=== PATIENT | female | born 1970 | race American Indian/Alaskan Native ===

== ENCOUNTER 2016-08-30 21:49 | Inpatient (IN) | payer SELFPAY ==
[2016-08-30] MEDS ORDERED: CATAPRES ONE (22:41)
[2016-08-30] MEDS ORDERED: CATAPRES PO ONE (22:47)
[2016-08-30 23:12] LABS: Basophils % (Auto) 1.3 % (0.0-1.8); Eosinophils % (Auto) 0.5 % (0.0-4.3); Mean Corpuscular HGB Conc 31 % (30-34); Mean Corpuscular Volume 75 fl (79-97); Platelet Count 245 K/mm3 (140-440); Red Blood Count 5.17 M/mm3 (3.65-5.03); Red Cell Distribution Width 15.3 % (13.2-15.2); White Blood Count 4.8 K/mm3 (4.5-11.0)
[2016-08-30 23:15] LABS: Hematocrit 38.6 % (30.3-42.9); Hemoglobin 11.8 gm/dl (10.1-14.3)
[2016-08-30 23:16] LABS: Mean Corpuscular Hemoglobin 23 pg (28-32)
[2016-08-30 23:22] LABS: Anion Gap 21 mmol/L; BUN/Creatinine Ratio 8.18; Blood Urea Nitrogen 9 mg/dL (7-17); Calcium 8.5 mg/dL (8.4-10.2); Carbon Dioxide 25 mmol/L (22-30); Chloride 95.3 mmol/L (98-107); Glucose 92 mg/dL (65-100); Sodium 138 mmol/L (137-145)
[2016-08-30 23:25] LABS: INR 0.91 (0.87-1.13)
[2016-08-30 23:26] LABS: Partial Thromboplastin Time 29.8 Sec. (24.2-36.6)
[2016-08-30 23:49] LABS: Potassium 2.9 mmol/L (3.6-5.0)
[2016-08-31] MEDS ORDERED: K-DUR PO ONE (00:45)
[2016-08-31] MEDS ORDERED: BENADRYL IV ONE (00:45)
[2016-08-31] MEDS ORDERED: TORADOL IV ONE (00:45)
[2016-08-31] MEDS ORDERED: REGLAN IV ONE (00:45)
--- NOTE | 2016-08-31 00:58 | Emergency Department Report ---
ED General Adult HPI - General Chief complaint: Chest Pain Stated complaint: CHEST PAIN/HIGH BP Time Seen by Provider: 08/31/16 00:26 Source: patient, EMS Mode of arrival: Ambulatory Limitations: No Limitations, Other - History of Present Illness Initial comments: 46-year-old female with a past medical history asthma, kidney stones, hypertension, and migraines presents to the hospital with multiple complaints. Patient is in a position covering eyes with her hands during history of present illness and getting only one-word answers so details of history of present illness is limited complaint #1: Headache Patient complains of frontal headache for several hours that is constant. Positive light sensitivity. Different from previous headaches because it came out and nowhere and was associated with elevated blood pressure. Patient states she has been compliant with his blood pressure medication.+ nausea and vomiting Complaint #2: Left-sided chest pain radiating to the back. Patient complains of constant I/10 chest pressure. Also complains of cough productive of yellow- green sputum since August 26. Patient reports that she had a negative stress test at [facility] several months ago. Patient apparently was prescribed nitroglycerin and has not been using the medication. Complaint #3: Numbness. Patient complains of numbness of paresthesias to bilateral hands and feet. No complaints of weakness. Severity scale (0 -10): 0 - Related Data Previous Rx's Medication Instructions Recorded Last Taken Type HYDROcodone/APAP 5-325 [[place] 1 each PO Q6HR PRN #20 tablet 08/31/16 Unknown Rx 5/325] Ibuprofen [Motrin] 800 mg PO Q8HR PRN #30 tablet 08/31/16 Unknown Rx Ondansetron [Zofran Odt] 4 mg PO Q8HR PRN #20 tab.rapdis 08/31/16 Unknown Rx Potassium Chloride 20 meq PO QDAY #4 packet 08/31/16 Unknown Rx Allergies Allergy/AdvReac Type Severity Reaction Status Date / Time No Known Allergies Allergy Unverified 12/08/15 18:17 ED Review of Systems ROS: Stated complaint: CHEST PAIN/HIGH BP Other details as noted in HPI Comment: All other systems reviewed and negative Other: Constitutional: No fevers chills Eyes: No eye pain visual changes ENT: No ear pain or throat pain Neck: Denies pain Respiratory: + cough Cardiovascular: + cp GI: Denies abdominal pain : Denies dysuria Musculoskeletal: Denies back pain, joint swelling Skin: Denies rash, lesions, erythema Neurologic: Denies headache, numbness, weakness Psychiatric: Denies suicidal ideation, hallucinations ED Past Medical Hx - Past Medical History Previous Medical History?: Yes Hx Hypertension: Yes Hx Headaches / Migraines: Yes (migraines) Hx Kidney Stones: Yes Hx Asthma: Yes - Surgical History Past Surgical History?: Yes Additional Surgical History: hysterectomy,breast cyst removed - Social History Smoking Status: Never Smoker Substance Use Type: Alcohol - Medications Home Medications: Home Medications Medication Instructions Recorded Confirmed Last Taken Type HYDROcodone/APAP 5-325 [[place] 1 each PO Q6HR PRN #20 tablet 08/31/16 Unknown Rx 5/325] Ibuprofen [Motrin] 800 mg PO Q8HR PRN #30 tablet 08/31/16 Unknown Rx Ondansetron [Zofran Odt] 4 mg PO Q8HR PRN #20 tab.rapdis 08/31/16 Unknown Rx Potassium Chloride 20 meq PO QDAY #4 packet 08/31/16 Unknown Rx ED Physical Exam - General Limitations: No Limitations - Other Other exam information: General: Limited by patient's discomfort Head exam: Atraumatic, normocephalic Eyes exam: Patient holding her eyes closed due to photosensitivity Neck exam: Normal inspection, full range of motion, no meningismus nontender Respiratory exam: Clear to auscultation bilateral, no wheezes, rales, crackles Cardiovascular: Normal rate and rhythm, normal heart sounds Abdomen: Soft, nondistended, and nontender, with normal bowel sounds, no rebound, or guarding Extremity: Full range of motion normal inspection no deformity, no calf tenderness or edema Back: Normal Inspection, full range of motion, no tenderness Neurologic: Alert, oriented x3, cranial nerves intact, no motor or sensory deficit Psychiatric: normal affect, normal mood Skin: Warm, dry, intact ED Course Vital Signs 08/30/16 08/30/16 08/30/16 21:50 22:47 23:58 Temperature 97.9 F Pulse Rate 81 81 85 Respiratory 18 19 Rate Blood Pressure 184/125 Blood Pressure 184/125 [Right] O2 Sat by Pulse 100 Oximetry 08/31/16 08/31/16 08/31/16 00:00 00:10 00:31 Temperature Pulse Rate 82 97 H 88 Respiratory 24 18 13 Rate Blood Pressure 172/111 140/84 Blood Pressure 170/107 [Right] O2 Sat by Pulse 100 99 Oximetry 08/31/16 08/31/16 08/31/16 01:49 02:00 02:31 Temperature Pulse Rate 90 94 H Respiratory 37 H 24 Rate Blood Pressure 143/94 145/80 145/80 Blood Pressure [Right] O2 Sat by Pulse 99 96 97 Oximetry 08/31/16 03:00 Temperature Pulse Rate 93 H Respiratory 23 Rate Blood Pressure 144/101 Blood Pressure [Right] O2 Sat by Pulse 95 Oximetry ED Medical Decision Making - Lab Data Result diagrams: 08/30/16 22:48 08/30/16 22:48 Lab Results 08/30/16 08/30/16 08/30/16 Range/Units 22:48 22:48 22:48 WBC 4.8 (4.5-11.0) K/mm3 RBC 5.17 H (3.65-5.03) M/mm3 Hgb 11.8 (10.1-14.3) gm/dl Hct 38.6 (30.3-42.9) % MCV 75 L (79-97) fl MCH 23 L (28-32) pg MCHC 31 (30-34) % RDW 15.3 H (13.2-15.2) % Plt Count 245 (140-440) K/mm3 Lymph % (Auto) 24.9 (13.4-35.0) % [place] % (Auto) 14.2 H (0.0-7.3) % Eos % (Auto) 0.5 (0.0-4.3) % Baso % (Auto) 1.3 (0.0-1.8) % Lymph # 1.2 (1.2-5.4) K/mm3 [place] # 0.7 (0.0-0.8) K/mm3 Eos # 0.0 (0.0-0.4) K/mm3 Baso # 0.1 (0.0-0.1) K/mm3 Seg Neutrophils % 59.1 (40.0-70.0) % Seg Neutrophils # 2.9 (1.8-7.7) K/mm3 PT 12.2 (12.2-14.9) Sec. INR 0.91 (0.87-1.13) APTT 29.8 (24.2-36.6) Sec. Sodium 138 (137-145) mmol/L Potassium 2.9 L* (3.6-5.0) mmol/L Chloride 95.3 L (98-107) mmol/L Carbon Dioxide 25 (22-30) mmol/L Anion Gap 21 mmol/L BUN 9 (7-17) mg/dL Creatinine 1.1 (0.7-1.2) mg/dL Estimated GFR > 60 ml/min BUN/Creatinine Ratio 8.18 % Glucose 92 (65-100) mg/dL Calcium 8.5 (8.4-10.2) mg/dL Magnesium (1.7-2.3) mg/dL Troponin T < 0.010 (0.00-0.029) ng/mL 08/30/16 08/31/16 Range/Units 22:48 02:03 WBC (4.5-11.0) K/mm3 RBC (3.65-5.03) M/mm3 Hgb (10.1-14.3) gm/dl Hct (30.3-42.9) % MCV (79-97) fl MCH (28-32) pg MCHC (30-34) % RDW (13.2-15.2) % Plt Count (140-440) K/mm3 Lymph % (Auto) (13.4-35.0) % [place] % (Auto) (0.0-7.3) % Eos % (Auto) (0.0-4.3) % Baso % (Auto) (0.0-1.8) % Lymph # (1.2-5.4) K/mm3 [place] # (0.0-0.8) K/mm3 Eos # (0.0-0.4) K/mm3 Baso # (0.0-0.1) K/mm3 Seg Neutrophils % (40.0-70.0) % Seg Neutrophils # (1.8-7.7) K/mm3 PT (12.2-14.9) Sec. INR (0.87-1.13) APTT (24.2-36.6) Sec. Sodium (137-145) mmol/L Potassium (3.6-5.0) mmol/L Chloride (98-107) mmol/L Carbon Dioxide (22-30) mmol/L Anion Gap mmol/L BUN (7-17) mg/dL Creatinine (0.7-1.2) mg/dL Estimated GFR ml/min BUN/Creatinine Ratio % Glucose (65-100) mg/dL Calcium (8.4-10.2) mg/dL Magnesium 1.7 (1.7-2.3) mg/dL Troponin T < 0.010 (0.00-0.029) ng/mL - EKG Data -: EKG Interpreted by Me (nsr rate 81, nonspecific t wave abnl, prologed qt) - EKG Data When compared to previous EKG there are: no significant change (compared to 12/07) - Radiology Data Radiology results: report reviewed (ct head: normal), image reviewed (xr chest: 2 view, curved spine, naf, narrow mediastium) - Medical Decision Making Patient's pain improved after Benadryl, Reglan, Toradol, Dilaudid 0.5 mg, and Zofran. Chest pain is atypical, somewhat reproducible and patient has an unchanged EKG, 2 sets of negative cardiac enzymes, and a self-reported negative stress test at [facility] within the last several months. Chest x-ray unremarkable given patient's respiratory symptoms there are no signs of infiltrate. Patient also has a narrow mediastinum Patient has a history of migraines. Headache improved with treatment. CT head does not show any acute abnormality. Patient's uncontrolled blood pressure improved with clonidine and has remained improved in the ED. She does not have her current blood pressure medication list and states she has been compliant however, patient has been having vomiting with associated hypokalemia. Patient be discharged with pain medication, nausea medication, and potassium supplementation - Differential Diagnosis pneumonia, bronchitis, migraine, hypertensive headache, ICH Critical Care Time: No Critical care attestation.: If time is entered above; I have spent that time in minutes in the direct care of this critically ill patient, excluding procedure time. ED Disposition Clinical Impression: Headache, Uncontrolled hypertension, Atypical chest pain, Hypokalemia Disposition: DISCHARGED TO HOME OR SELFCARE Is pt being admited?: No Does the pt Need Aspirin: No Condition: Stable Instructions: Hypertension (ED), Chest Pain (ED), Acute Headache (ED), Hypokalemia (ED) Additional Instructions: Take the medication as prescribed. Return if symptoms worsen. Follow-up with your doctor or the doctor/clinic provided for further workup and evaluation Prescriptions: HYDROcodone/APAP 5-325 [[place] 5/325] 1 each PO Q6HR PRN #20 tablet PRN Reason: Pain Ibuprofen [Motrin] 800 mg PO Q8HR PRN #30 tablet PRN Reason: Pain Ondansetron [Zofran Odt] 4 mg PO Q8HR PRN #20 tab.rapdis PRN Reason: Nausea And Vomiting Potassium Chloride 20 meq PO QDAY #4 packet Referrals: [facility] [Provider Group] - 3-5 Days MONTY CROWELL MD [Staff Physician] - 3-5 Days Time of Disposition: 04:10
--- NOTE | 2016-08-31 01:33 | Cat Scan Report ---
FINAL REPORT PROCEDURE: CT HEAD/BRAIN WO CON TECHNIQUE: Computerized tomography of the head was performed without contrast material. HISTORY: headache, elevated bp COMPARISON: No prior studies are available for comparison. FINDINGS: Skull and scalp: Normal. Paranasal sinuses: Normal. Ventricles and subarachnoid spaces: Normal. Cerebrum: No evidence of hemorrhage, acute infarction or mass . Cerebellum and brainstem: No evidence of hemorrhage, acute infarction or mass. Vasculature: Normal. Comments: None. IMPRESSION: Normal Examination
[2016-08-31] MEDS ORDERED: POTASSIUM CHLORIDE FEEDTUBE ONE (01:40)
[2016-08-31] MEDS ORDERED: DILAUDID IV ONE (02:52)
[2016-08-31] MEDS ORDERED: ZOFRAN IV ONE (02:52)
[2016-08-31] MEDS ORDERED: NACL 0.9% 1000 ML 1,000 ML IV ONE (04:48)
--- NOTE | 2016-08-31 05:42 | History and Physical Report ---
History of Present Illness Date of examination: 08/31/16 Chief complaint: syncopal episode History of present illness: 46-year-old -[place] female with medical history significant for uncontrolled hypertension, CAD, headache, asthma presented to the emergency department for uncontrolled blood pressure and headache. Patient was treated for the above complaints and discharged. After she left the ED she had a syncopal episode and came back. She has a family member with her and she didn' t lost consciousness, didn't feel on the ground, didn't have any abnormal body movement. Her blood pressure at that time was low systolic was 88. Patient had chest pain and had recent stress test and was negative. REVIEW OF SYSTEMS: GENERAL: no weight change, no fatigue, no fever HEAD: + head ache EYES: no blurry vision, no acute visual loss EARS: no hearing loss, no discharge, no earache NOSE: no stuffiness, no sneezing, no discharge MOUTH, THROAT AND NECK: no bleeding gums, no sore throat, no swollen neck CARDIAC: no palpitations, no dyspnea on exertion, no orthopnea, no PND, no edema , + chest pain RESPIRATORY: no shortness of breath, no wheeze, no cough, no sputum, no hemoptysis. GI: no decreased appetite, + nausea, + vomiting, no dysphagia, no diarrhea, no constipation, no abdominal pain URINARY: no change in frequency, no urgency, no polyuria, no hematuria, no incontinence MUSCULOSKELETAL: no muscle weakness, no pain, no joint stiffness NEUROLOGIC: no loss of sensation/numbness, no tingling, no tremors, no weakness/ paralysis HEMATOLOGIC: no anemia, no easy bruising SKIN: no rashes ENDOCRINE: no heat/cold intolerance, no polyuria, no polydipsia, no thyroid problems, no diabetes PSYCHIATRIC: no anxiety, no depression, no suicidal ideations Past History Past Medical History: CAD, hypertension Past Surgical History: hysterectomy Social history: alcohol abuse, full code. denies: smoking Family history: no significant family history Medications and Allergies Allergies Allergy/AdvReac Type Severity Reaction Status Date / Time No Known Allergies Allergy Unverified 12/08/15 18:17 Home Medications Medication Instructions Recorded Confirmed Last Taken Type HYDROcodone/APAP 5-325 [[place] 1 each PO Q6HR PRN #20 tablet 08/31/16 Unknown Rx 5/325] Ibuprofen [Motrin] 800 mg PO Q8HR PRN #30 tablet 08/31/16 Unknown Rx Ondansetron [Zofran Odt] 4 mg PO Q8HR PRN #20 tab.rapdis 08/31/16 Unknown Rx Potassium Chloride 20 meq PO QDAY #4 packet 08/31/16 Unknown Rx Active Meds: Active Medications Enoxaparin Sodium (Lovenox) 40 mg SUB-Q QDAY ALEXANDER Sodium Chloride (Nacl 0.9% 1000 Ml) 1,000 mls @ 999 mls/hr IV BOLUS ONE Stop: 08/31/16 05:48 Last Admin: 08/31/16 05:07 Dose: 999 mls/hr Exam - Physical Exam Narrative exam: Not in cardiopulmonary distress. The patient appeared well nourished and normally developed. Vital signs as documented. Head exam is unremarkable. No scleral icterus . Neck is without jugular venous distension, thyromegaly, or carotid bruits. Lungs are clear to auscultation. Cardiac exam reveals regular rate and Rhythm. First and second heart sounds normal. No murmurs, rubs or gallops. Abdominal exam reveals normal bowel sounds, no masses, no organomegaly and no aortic enlargement. Extremities are nonedematous and both femoral and pedal pulses are normal. STRATIGRAPHER: Alert and oriented 3. No focal weakness. - Constitutional Vitals: Temp Pulse Resp BP Pulse Ox 98.8 F 85 18 143/88 94 08/31/16 04:00 08/31/16 04:00 08/31/16 04:00 08/31/16 04:00 08/31/16 03:31 Results - Labs CBC & Chem 7: 08/30/16 22:48 08/30/16 22:48 Labs: Laboratory Last Values WBC 4.8 K/mm3 (4.5-11.0) 08/30/16 22:48 RBC 5.17 M/mm3 (3.65-5.03) H 08/30/16 22:48 Hgb 11.8 gm/dl (10.1-14.3) 08/30/16 22:48 Hct 38.6 % (30.3-42.9) 08/30/16 22:48 MCV 75 fl (79-97) L 08/30/16 22:48 MCH 23 pg (28-32) L 08/30/16 22:48 MCHC 31 % (30-34) 08/30/16 22:48 RDW 15.3 % (13.2-15.2) H 08/30/16 22:48 Plt Count 245 K/mm3 (140-440) 08/30/16 22:48 Lymph % (Auto) 24.9 % (13.4-35.0) 08/30/16 22:48 [place] % (Auto) 14.2 % (0.0-7.3) H 08/30/16 22:48 Eos % (Auto) 0.5 % (0.0-4.3) 08/30/16 22:48 Baso % (Auto) 1.3 % (0.0-1.8) 08/30/16 22:48 Lymph # 1.2 K/mm3 (1.2-5.4) 08/30/16 22:48 [place] # 0.7 K/mm3 (0.0-0.8) 08/30/16 22:48 Eos # 0.0 K/mm3 (0.0-0.4) 08/30/16 22:48 Baso # 0.1 K/mm3 (0.0-0.1) 08/30/16 22:48 Seg Neutrophils % 59.1 % (40.0-70.0) 08/30/16 22:48 Seg Neutrophils # 2.9 K/mm3 (1.8-7.7) 08/30/16 22:48 PT 12.2 Sec. (12.2-14.9) 08/30/16 22:48 INR 0.91 (0.87-1.13) 08/30/16 22:48 APTT 29.8 Sec. (24.2-36.6) 08/30/16 22:48 Sodium 138 mmol/L (137-145) 08/30/16 22:48 Potassium 2.9 mmol/L (3.6-5.0) L* 08/30/16 22:48 Chloride 95.3 mmol/L (98-107) L 08/30/16 22:48 Carbon Dioxide 25 mmol/L (22-30) 08/30/16 22:48 Anion Gap 21 mmol/L 08/30/16 22:48 BUN 9 mg/dL (7-17) 08/30/16 22:48 Creatinine 1.1 mg/dL (0.7-1.2) 08/30/16 22:48 Estimated GFR > 60 ml/min 08/30/16 22:48 BUN/Creatinine Ratio 8.18 % 08/30/16 22:48 Glucose 92 mg/dL (65-100) 08/30/16 22:48 Calcium 8.5 mg/dL (8.4-10.2) 08/30/16 22:48 Magnesium 1.7 mg/dL (1.7-2.3) 08/30/16 22:48 Troponin T < 0.010 ng/mL (0.00-0.029) 08/31/16 02:03 - Imaging and Cardiology EKG: report reviewed (NSR) CT Scan - head: report reviewed (no acute intracranial abnormalities.) Assessment and Plan Assessment and plan: Syncopal episode Orthostatic hypotension Chest pain Uncontrolled HTN History of CAD - CT head negative - EKG normal sinus rhythm, negative cardiac enzymes - Patient is on IV fluid, I held the blood pressure medications - Cardiology consult Prophylaxis - Lovenox Disposition - Admit to the floor Advance Directives: Yes VTE prophylaxis?: Chemical Plan of care discussed with patient/family: Yes
--- NOTE | 2016-08-31 07:41 | XRay Report ---
Chest 2 views: History: Chest pain, cough. Findings: Normal cardiomediastinal silhouette. Trachea is midline. Suspicion of infiltrate right lower lobe. Normal CP angles. Incidentally noted scoliosis of dorsal spine with convexity to right. Impression: Suspicion of infiltrate right lower lobe
--- NOTE | 2016-08-31 08:01 | Admit Criteria Form ---
Admission Criteria Documentation: SYNCOPE Clinical Indications for Admission to Inpatient Care ( Place 'X' for any and all applicable criteria): Admission is indicated for syncope and ANY ONE of the following (1)(2)(3)(4)(5) (6)(7) : [X]I. Inpatient admission required rather than observation care (Also use Syncope: Observation Care Criteria as appropriate) because of ANY ONE of the following: [ ]a) Hemodynamic instability that is severe or persistent [ ]b) Cardiac arrhythmias of immediate concern identified or strongly suspected (eg, needs electrophysiologic study) [ ]c) Acute coronary syndrome identified (Also use Myocardial Infarction or Angina Criteria form ) [ ]d) Structural cardiac disorder (eg, aortic stenosis) suspected as cause that requires immediate correction [ ]e) Respiratory symptoms (eg, dyspnea, tachypnea) that are severe or persistent [ ]f) Neurologic signs or symptoms that are severe or persistent ( eg, stroke, seizures, altered mental status) [X]g) Severe electrolyte abnormalities requiring inpatient care [ ]h) Supplemental oxygen or respiratory treatment for over 24 hrs that are performable only in acute inpatient setting [ ]i) IV fluid to replace significant ongoing (eg, for over 24 hrs ) losses (>3 L/m2 per day) [ ]j) Continuous intravenous infusion of anticoagulation, platelet inhibitor, vasoactive, or antiarrhythmic medication(15)(16) [ ]k) Pulmonary artery catheter monitoring [ ]l) Temporary pacemaker placement(17) [ ]m) Emergent cardioversion(18) [X]n) Other conditions, treatment or monitoring requiring inpatient admission [ ]II. Suspicion of imminently dangerous cause (eg, rare causes like pericardial tamponade, pulmonary embolism) [ ]III. Syncope causing severe injury requiring hospitalization Extended stay beyond goal length of stay may be needed for(28) [ ]a) Dangerous arrhythmia(15)(23)(27)(29) [ ]b) Myocardial ischemia [ ]c) Seizure disorder [ ]d) Syncope-related injuries The original [employer] content created by [employer] has been revised. The portions of the content which have been revised are identified through the use of italic text or in bold, and [facility] [employer] has neither reviewed nor approved the modified material. All other unmodified content is copyright [facility] [employer]. Please see references footnoted in the original [facility] edition 2016 Admission Criteria Met: Yes
--- NOTE | 2016-08-31 08:18 | Event Note ---
Date: 08/31/16 patient seen and evaluated medical records reviewed Admitted with syncopal episode and uncontrolled hypertension Patient reports in the family and patient was overwhelmed and shocked No new episodes of syncope or dizziness after admission Medical records reviewed We will order echocardiogram for left ventricle function ejection fraction Carotid Doppler Follow cardiology evaluation Agreed with the current management Plan of care discussed with the patient and multiple family members at the bedside
--- NOTE | 2016-08-31 08:42 | Consultation ---
History of Present Illness Consult date: 08/31/16 Requesting physician: MARIO REARDON Consult reason: chest pain History of present illness: The patient is a 46 year old female with a history of hypertension, asthma, migraines who presented with complaints of intermittent chest pain with radiation to her back and left shoulder ongoing since yesterday evening. Associated with mild shortness of breath, nausea, vomiting and diaphoresis. She also c/o headache and sensitivity to light. BP 184/125 on presentation. She was given pain medication and clonidine in the ER with improvement in her blood pressure and pain and was discharged home from the ER. As she was walking out of the hospital, she passed out. SBP noted to 88 and she was subsequently admitted. BP improved with fluids. Currently she continue to c/o chest pain and headache. Troponin negative x 2. She states that she has had a cardiac cath in the past that showed "mild blockage" but does not have any stents. Stress echo done 10/2014 at [facility] was negative for ischemia. Past History Past Medical History: hypertension, other (asthma, migraines) Past Surgical History: hysterectomy Social history: full code. denies: smoking, alcohol abuse Family history: CAD (father) Medications and Allergies Allergies Allergy/AdvReac Type Severity Reaction Status Date / Time No Known Allergies Allergy Unverified 12/08/15 18:17 Home Medications Medication Instructions Recorded Confirmed Last Taken Type HYDROcodone/APAP 5-325 [[place] 1 each PO Q6HR PRN #20 tablet 08/31/16 Unknown Rx 5/325] Ibuprofen [Motrin] 800 mg PO Q8HR PRN #30 tablet 08/31/16 Unknown Rx Labetalol 10 mg DAILY 08/31/16 08/31/16 08/30/16 08:00 History Lisinopril 20 mg DAILY 08/31/16 08/31/16 08/30/16 08:00 History Nitroglycerin [place] PRN 08/31/16 Unknown History Ondansetron [Zofran Odt] 4 mg PO Q8HR PRN #20 tab.rapdis 08/31/16 Unknown Rx Potassium Chloride 20 meq PO QDAY #4 packet 08/31/16 Unknown Rx aMILoride/HYDROCHLOROTHIAZIDE 20 mg BID 08/31/16 08/31/16 08/30/16 08:00 History Active Meds: Active Medications Enoxaparin Sodium (Lovenox) 40 mg SUB-Q QDAY ALEXANDER Hydralazine HCl (Apresoline) 10 mg IV Q4HR PRN PRN Reason: HTN BP>160/90 Review of Systems Constitutional: no fever, no chills Eyes: bilateral: photophobia Ears, nose, mouth and throat: no nasal congestion, no nasal discharge, no sinus pressure Cardiovascular: chest pain, shortness of breath, no leg edema Respiratory: no cough, no congestion, no wheezing Gastrointestinal: nausea, vomiting, no abdominal pain, no diarrhea, no constipation Genitourinary Female: no dysuria, no urgency Musculoskeletal: no neck stiffness, no neck pain Integumentary: no rash, no pruritis Neurological: headaches, migraines Endocrine: no cold intolerance, no heat intolerance Hematologic/Lymphatic: no easy bruising, no easy bleeding Allergic/Immunologic: no urticaria, no wheezing Physical Examination Vital Signs Temp Pulse Resp BP Pulse Ox 97.9 F 81 18 184/125 100 08/30/16 21:50 08/30/16 21:50 08/30/16 21:50 08/30/16 21:50 08/30/16 21:50 General appearance: no acute distress HEENT: Positive: Normocephaly, Mucus Membranes Moist Neck: Positive: neck supple, trachea midline Cardiac: Positive: Reg Rate and Rhythm, S1/S2 Lungs: Positive: clear to auscultation Neuro: Positive: Grossly Intact Abdomen: Positive: Soft, Active Bowel Sounds. Negative: Tender Skin: Positive: Clear. Negative: Rash Extremities: Present: normal. Absent: edema Results 08/30/16 22:48 08/31/16 08:32 - Imaging and Cardiology Echo: report reviewed (Echo 11/2015: EF 55-60%, impaired relaxation, mild MR) EKG: image reviewed EKG interpretations - Telemetry EKG Rhythm: Sinus Rhythm - EKG Sinus rhythms and dysrhythmias: sinus rhythm Repolarization changes or abnormalities: nonspecific abnormality, ST segment, and/or T wave Assessment and Plan Chest pain troponin negative x 2 no acute EKG changes Echo 11/2015: EF 55-60%, impaired relaxation, mild MR stress echo 10/2014: no ischemia repeat stress test in am Syncope likely due to transient hypotension carotids negative Accelerated hypertension optimize anti-hypertensive regimen Hypokalemia-->resolved Headache Asthma Will optimize anti-hypertensive regimen. Stress test in am. The patient has been seen in conjunction with Dr. Skelton who agrees with the assessment and plan of care. Thank you Dr. Reardon for allowing us to participate in the care of this patient.
[2016-08-31 09:07] LABS: Anion Gap 14 mmol/L; Blood Urea Nitrogen 11 mg/dL (7-17); Calcium 8.1 mg/dL (8.4-10.2); Carbon Dioxide 27 mmol/L (22-30); Chloride 97.4 mmol/L (98-107); Glucose 110 mg/dL (65-100); Magnesium 1.8 mg/dL (1.7-2.3); Potassium 3.8 mmol/L (3.6-5.0); Sodium 135 mmol/L (137-145)
[2016-08-31] MEDS: APRESOLINE IV PRN ×2 (09:08→13:34)
[2016-08-31] MEDS: LOVENOX SUB-Q SCH (09:51)
[2016-08-31] MEDS: TYLENOL PO PRN ×2 (12:15→20:59)
[2016-08-31] MEDS: NORVASC PO SCH (15:14)
[2016-08-31] MEDS ORDERED: HCTZ PO ONE (16:44)
[2016-08-31] MEDS ORDERED: XANAX PO PRN (16:45)
[2016-08-31] MEDS: ZESTRIL PO SCH (20:59)
[2016-08-31] MEDS: APRESOLINE PO SCH (20:59)
[2016-08-31] MEDS: LOPRESSOR PO SCH (20:59)
[2016-09-01] MEDS ORDERED: PERCOCET 5/325 PO ONE (00:10)
[2016-09-01] MEDS: APRESOLINE PO SCH ×2 (05:39→13:57)
--- NOTE | 2016-09-01 09:29 | Progress Note ---
Assessment and Plan Chest pain troponin negative x 2 no acute EKG changes Echo 11/2015: EF 55-60%, impaired relaxation, mild MR stress echo 10/2014: no ischemia stress test today: no ischemia Syncope likely due to transient hypotension carotids negative Accelerated hypertension optimize anti-hypertensive regimen Hypokalemia-->resolved Headache Asthma Stress test negative for ischemia. Patient may be discharged from a cardiac standpoint. Follow up in the office in 1-2 weeks. The patient has been seen in conjunction with Dr. Skelton who agrees with the assessment and plan of care. Subjective Date of service: 09/01/16 Principal diagnosis: chest pain Interval history: Patient seen and examined in the stress lab. Sinus rhythm on the monitor. Objective Last Vital Signs Temp 98.2 F 09/01/16 13:26 Pulse 88 09/01/16 13:26 Resp 20 09/01/16 13:26 BP 140/86 09/01/16 13:26 Pulse Ox 97 09/01/16 13:26 - Physical Examination General: No Apparent Distress HEENT: Positive: Normocephaly, Mucus Membranes Moist Neck: Positive: neck supple, trachea midline Cardiac: Positive: Reg Rate and Rhythm, S1/S2 Lungs: Positive: clear to auscultation Neuro: Positive: Grossly Intact Abdomen: Positive: Soft, Active Bowel Sounds. Negative: Tender Skin: Positive: Clear. Negative: Rash Extremities: Present: normal. Absent: edema - Imaging and Cardiology EKG: image reviewed Echo: report reviewed (Echo 11/2015: EF 55-60%, impaired relaxation, mild MR) - Telemetry EKG Rhythm: Sinus Rhythm - EKG Sinus rhythms and dysrhythmias: sinus rhythm Repolarization changes or abnormalities: nonspecific abnormality, ST segment, and/or T wave
[2016-09-01] MEDS ORDERED: LEXISCAN IV ONE ×2 (09:35→10:00)
[2016-09-01] MEDS ORDERED: HCTZ PO SCH (10:00)
[2016-09-01] MEDS: NORVASC PO SCH (11:40)
[2016-09-01] MEDS: ZESTRIL PO SCH (11:40)
[2016-09-01] MEDS: LOPRESSOR PO SCH (11:40)
[2016-09-01] MEDS: LOVENOX SUB-Q SCH (11:41)
[2016-09-01 14:05] VITALS: BP 101/61
--- NOTE | 2016-09-01 14:26 | Discharge Summary ---
Providers - Providers Date of Admission: 08/31/16 05:36 Date of discharge: 09/01/16 Attending physician: GAGANDEEP BILLS 08/31/16 05:57 Consult to Physician [CONS] Routine Consulting Provider: BOYD THURSTON Reason For Exam: chest pain, CAD Place consult to:: [facility] Notified:: service Phone number called:: [phone] Was contact made?: No Time called:: 08:11 Primary care physician: [employer] Hospitalization Condition: Stable Disposition: DISCHARGED TO HOME OR SELFCARE Core Measure Documentation - Palliative Care Palliative Care/ Comfort Measures: Not Applicable - Core Measures Any of the following diagnoses?: none Exam - Constitutional Vitals: Temp Pulse Resp BP Pulse Ox 98.2 F 88 20 140/86 97 09/01/16 13:26 09/01/16 13:26 09/01/16 13:26 09/01/16 13:26 09/01/16 13:26 General appearance: Present: no acute distress, well-nourished - EENT Eyes: Present: PERRL, EOM intact - Neck Neck: Present: supple, normal ROM - Respiratory Respiratory effort: normal Respiratory: negative: diminished, rales, rhonchi - Cardiovascular Rhythm: regular Heart Sounds: Present: S1 & S2 - Extremities Extremities: no ischemia, pulses intact, pulses symmetrical Peripheral Pulses: within normal limits - Abdominal General gastrointestinal: Present: soft, non-tender, non-distended, normal bowel sounds - Integumentary Integumentary: Present: clear, warm - Musculoskeletal Musculoskeletal: strength equal bilaterally, generalized weakness - Psychiatric Psychiatric: appropriate mood/affect, cooperative - Neurologic Neurologic: CNII-XII intact, moves all extremities Plan Activity: advance as tolerated, fall precautions Diet: low salt Follow up with: [facility] [Provider Group] - 3-5 Days MONTY CROWELL MD [Staff Physician] - 3-5 Days Prescriptions: HYDROcodone/APAP 5-325 [[place] 5/325] 1 each PO Q6HR PRN #20 tablet PRN Reason: Pain Ibuprofen [Motrin] 800 mg PO Q8HR PRN #30 tablet PRN Reason: Pain Ondansetron [Zofran Odt] 4 mg PO Q8HR PRN #20 tab.rapdis PRN Reason: Nausea And Vomiting Potassium Chloride 20 meq PO QDAY #4 packet
--- NOTE | 2016-09-01 21:12 | Treadmill Report ---
LEXISCAN SCAN STRESS MYOCARDIAL SCAN REFERRING PHYSICIAN: Sabi Stephens MD, hospitalist. DESCRIPTION OF PROCEDURE: The patient received 10 mCi of technetium 99m Myoview intravenously under resting condition. Resting myocardial perfusion scan was done. Subsequently, the patient underwent 28 mCi of technetium 99m Myoview intravenously. After 30-60 minutes, post stress images were done. Computerized reconstructed images were performed for analysis. The post-stress images revealed uniform distribution of the radiopharmaceutical in the left ventricular myocardium. Cinematic display of the gated study did not reveal any wall motion abnormality. The left ventricular ejection fraction was low normal and was calculated to be 53%. The resting images were also normal. CONCLUSION: 1. No perfusion abnormality of the left ventricular myocardium was demonstrated in the resting as well as stress images obtained after the patient underwent Lexiscan stress test. 2. No wall motion abnormality. 3. Low normal left ventricular ejection fraction of 53%. JOB# [id number] [facility]
--- NOTE | 2016-09-04 07:34 | Vascular Lab Report ---
CAROTID DUPLEX STUDY: RIGHT PSVEDV CCA PROX:[id number] CCA DIST: 7528 ICA PROX: 4821 ICA MID: 6328 ICA DIST: 7534 ECA: 100 VERT: 61 19 LEFT PSVEDV CCA PROX:[id number] CCA DIST: 9326 ICA PROX: 5520 ICA MID: 6427 ICA DIST: 5626 ECA: 105 VERT: 51 17 REASON FOR EXAM: Carotid artery stenosis/syncope. COMMENTS ON THE RIGHT: Doppler frequency analysis is consistent with 16 to 49 percent diameter reduction of the internal carotid artery. Minimal amount of plaque is seen. The common carotid artery is patent. The external carotid artery is patent. The vertebral artery has antegrade flow. COMMENTS ON THE LEFT: Doppler frequency analysis is consistent with 16 to 49 percent diameter reduction of the internal carotid artery. Minimal amount of plaque is seen. The common carotid artery is patent. The external carotid artery is patent. The vertebral artery has antegrade flow. IMPRESSION: Less than 50% diameter reduction in the internal carotid arteries bilaterally. Consider repeat carotid artery duplex in 12 months.
== END 2016-09-01 15:42 | disposition home or self-care (01) | DRG 312 ==
LOC: ED 21:49 → 4A 08-31 05:36
PROVIDERS: ADMIT Internal Medicine; ATTEND Internal Medicine
DX: I95.1 Orthostatic hypotension (principal); R07.9 Chest pain, unspecified; I10 Essential (primary) hypertension; R51 Headache; E87.6 Hypokalemia; J45.909 Unspecified asthma, uncomplicated; Z87.442 Personal history of urinary calculi; G43.909 Migraine, unspecified, not intractable, without status migrainosus; Z90.710 Acquired absence of both cervix and uterus; I25.10 Atherosclerotic heart disease of native coronary artery without angina pectoris; F10.10 Alcohol abuse, uncomplicated; Z82.49 Family history of ischemic heart disease and other diseases of the circulatory system
CPT/HCPCS: 36415; 70450; 71020; 78452; 80048; 83735; 84484; 85025; 85610; 85730; 93005; 93010; 93017; 93306; 93880; 96374; 96375; A9502; J0360; J1170; J1200; J1650; J1885; J2405; J2765; J2785; J7030